=== PATIENT | male | born 1970 | race Caucasian/White ===

== ENCOUNTER → 2022-05-25 | Outpatient (CLI) | payer BC ==
[~2022-05-25] MED LIST: ISOVUE-370 76% 100ML VIAL As Ordered ONE
== END ==
LOC: M RAD 12:28
PROVIDERS: ATTEND Family Medicine
DX: R07.89 Other chest pain (principal); R07.1 Chest pain on breathing
CPT/HCPCS: 71275; Q9967

== ENCOUNTER → 2024-02-20 | Outpatient (CLI) | payer BC, OTHER | LOC: M CARPUL 13:54 | PROVIDERS: ATTEND Family Medicine | DX: I35.0 Nonrheumatic aortic (valve) stenosis (principal) ==

== ENCOUNTER → 2024-05-01 | Outpatient (CLI) | payer BC | LOC: M CARPUL 07:50 | PROVIDERS: ATTEND Internal Medicine | DX: R06.00 Dyspnea, unspecified (principal) ==

== ENCOUNTER 2025-02-14 04:10 | Emergency (ER) | payer BC ==
[~2025-02-14] VITALS: Ht 175.3 cm; Wt 113.6 kg
[2025-02-14 04:51] LABS: BASO # 0.1 10^3/uL (0.0-0.2); BASO % 0.5 % (0.0-1.0); EOS # 0.1 10^3/uL (0.0-0.5); EOS % 0.5 % (0.0-3.0); LYMPH # 1.3 10^3/uL (1.5-5.0); LYMPH % 11.8 % (24.0-44.0); MONO # 1.2 10^3/uL (0.0-0.8); MONO % 10.7 % (2.0-8.0); NEUTROPHILS # 8.3 10^3/uL (1.5-8.5); NEUTROPHILS % 76.0 % (36.0-66.0); PLATELET COUNT, AUTOMATED 246 10^3/uL (150-450)
[2025-02-14 05:10] LABS: CALCIUM LEVEL 9.8 MG/DL (8.5-10.1); CARBON DIOXIDE LEVEL 29 MMOL/L (20-31); CHLORIDE LEVEL 100 MMOL/L (98-107); CK-MB VALUE MASS < 1.0 NG/ML (<3.6); CREATININE FOR GFR 1.01 MG/DL (0.70-1.30); GLOMERULAR FILTRATION RATE 88.4 (>56); POTASSIUM SERUM 4.3 MMOL/L (3.5-5.1); SODIUM LEVEL 141 MMOL/L (136-145)
[2025-02-14 05:12] LABS: CPK CREATINE PHOSPHOKINASE 71 U/L (46-171)
[2025-02-14] MEDS: LIDOCAINE VISCOUS 2% SOLN 15 ML UDC PO ONE (06:31)
[2025-02-14] MEDS: MAALOX 30 ML SUSP *UDC PO ONE (06:31)
[2025-02-14] MEDS: PANTOPRAZOLE 40MG VIAL IV ONE (06:31)
[2025-02-14] MEDS: KETOROLAC 30 MG/ML 1 ML VIAL IV ONE (06:31)
[2025-02-14] MEDS: FAMOTIDINE 20 MG/2 ML VIAL IVP ONE (06:31)
[2025-02-14 07:02] LABS: CK-MB VALUE MASS < 1.0 NG/ML (<3.6)
[2025-02-14 07:03] LABS: CPK CREATINE PHOSPHOKINASE 67 U/L (46-171)
[2025-02-14 07:36] VITALS: BP 125/75; O2SAT 98
[2025-02-14 07:37] VITALS: TEMP 98.6
[2025-02-14] MEDS ORDERED: NAPR-1405 PO (07:49)
[2025-02-14] MEDS ORDERED: ROSU5TAB49 PO (18:48)
[2025-02-14] MEDS ORDERED: ANAS1TAB2 PO (18:48)
[2025-02-14] MEDS ORDERED: LANS15CA PO (18:48)
[2025-02-14] MEDS ORDERED: NIFE1TAB52 PO (18:48)
[2025-02-14] MEDS ORDERED: NAPR-885 PO (20:42)
[2025-02-14] MEDS ORDERED: PRED20TA PO (23:54)
[2025-02-14] MEDS ORDERED: KETO-204 PO (23:54)
== END 2025-02-14 08:20 | disposition home or self-care (01) ==
LOC: M ED 04:10
DX: R09.1 Pleurisy (principal); R94.31 Abnormal electrocardiogram [ECG] [EKG]; Z88.2 Allergy status to sulfonamides; Z88.5 Allergy status to narcotic agent; Z79.2 Long term (current) use of antibiotics; Z79.52 Long term (current) use of systemic steroids; Z79.899 Other long term (current) drug therapy

== ENCOUNTER 2025-02-14 18:36 | Emergency (ER) | payer BC ==
[~2025-02-14 18:36] MED LIST changes: -ANAS1TAB2 PO; -KETO-204 PO; -LANS15CA PO; -NAPR-885 PO; -NIFE1TAB52 PO; -PRED20TA PO; -ROSU5TAB49 PO
[2025-02-14 18:48] VITALS: TEMP 99.6
[2025-02-14] MEDS ORDERED: LANS15CA PO (18:48)
[2025-02-14] MEDS ORDERED: ANAS1TAB2 PO (18:48)
[2025-02-14] MEDS ORDERED: ROSU5TAB49 PO (18:48)
[2025-02-14] MEDS ORDERED: NIFE1TAB52 PO (18:48)
[2025-02-14] MEDS ORDERED: ISOVUE-370 76% 100 ML VIAL As Ordered ONE (19:49)
[2025-02-14] MEDS: IPRATROPIUM 0.5 MG/ALBUTEROL 2.5 MG INH SOL UD 3 ML NEB ONE (20:00)
[2025-02-14] MEDS: SUCRALFATE SUSP 1GM/10ML UD PO ONE (20:00)
[2025-02-14 20:07] LABS: BASO # 0.1 10^3/uL (0.0-0.2); BASO % 0.5 % (0.0-1.0); EOS # 0.1 10^3/uL (0.0-0.5); EOS % 0.7 % (0.0-3.0); LYMPH # 1.3 10^3/uL (1.5-5.0); LYMPH % 14.2 % (24.0-44.0); MONO # 1.2 10^3/uL (0.0-0.8); MONO % 12.4 % (2.0-8.0); NEUTROPHILS # 6.7 10^3/uL (1.5-8.5); NEUTROPHILS % 71.7 % (36.0-66.0); PLATELET COUNT, AUTOMATED 217 10^3/uL (150-450)
[2025-02-14 20:23] LABS: INR 1.05
[2025-02-14] MEDS: ALBUTEROL SULFATE 2.5 MG/0.5 ML INH CONCENTRATE NEB SOLN INH ONE (20:25)
[2025-02-14 20:37] LABS: CK-MB VALUE MASS < 1.0 NG/ML (<3.6)
[2025-02-14 20:39] LABS: ALT/SGPT 24 U/L (7.0-40); AST/SGOT 18 U/L (<34); CALCIUM LEVEL 9.3 MG/DL (8.5-10.1); CARBON DIOXIDE LEVEL 29 MMOL/L (20-31); CHLORIDE LEVEL 105 MMOL/L (98-107); CPK CREATINE PHOSPHOKINASE 67 U/L (46-171); CREATININE FOR GFR 1.03 MG/DL (0.70-1.30); GLOMERULAR FILTRATION RATE 86.3 (>56); POTASSIUM SERUM 4.1 MMOL/L (3.5-5.1); SODIUM LEVEL 144 MMOL/L (136-145)
[2025-02-14] MEDS ORDERED: NAPR-885 PO (20:42)
[2025-02-14] MEDS ORDERED: HOME MED LIST COMPLETE! XX SCH (20:45)
[2025-02-14] MEDS: KETOROLAC 30 MG/ML 1 ML VIAL IV ONE (21:43)
[2025-02-14 21:51] VITALS: BP 118/80
[2025-02-14 22:31] LABS: CK-MB VALUE MASS < 1.0 NG/ML (<3.6)
[2025-02-14 22:34] LABS: CPK CREATINE PHOSPHOKINASE 61 U/L (46-171)
[2025-02-14 23:00] VITALS: O2SAT 95
[2025-02-14 23:54] LABS: KETONE, URINE AUTO RFX NEGATIVE (NEGATIVE); LEUKOCYTE ESTERASE UR AUTO RFX NEGATIVE (NEGATIVE); NITRITE, URINE AUTO RFX NEGATIVE (NEGATIVE); RBC, URINE AUTO RFX 1 /HPF (0-3); SQUAM EPITHELIAL CELL UR AURFX 0 /HPF (0-6); WBC, URINE AUTO RFX 1 /HPF (0-3)
[2025-02-14] MEDS ORDERED: KETO-204 PO (23:54)
[2025-02-14] MEDS ORDERED: PRED20TA PO (23:54)
[2025-02-15] MEDS: KETOROLAC TROMETHAMINE 10 MG TAB PO ONE (00:59)
== END 2025-02-15 01:00 | disposition home or self-care (01) ==
LOC: M ED 18:36
DX: R09.1 Pleurisy (principal); B34.1 Enterovirus infection, unspecified; Z88.2 Allergy status to sulfonamides; Z88.5 Allergy status to narcotic agent; Z79.52 Long term (current) use of systemic steroids; Z79.899 Other long term (current) drug therapy; R07.1 Chest pain on breathing; R06.02 Shortness of breath
CPT/HCPCS: 36415; 71045; 71275; 74177; 80048; 80076; 81001; 82550; 82553; 83690; 83880; 84443; 84484; 85025; 85379; 85610; 85730; 87486; 87581; 87633; 87798; 93005; 93041; 94760; 96374; 99284; 99285; J1308; J1885; J2470; Q9967

== ENCOUNTER → 2025-02-14 | Outpatient (CLI) | payer BC ==
[~2025-02-14] MED LIST changes: +ANAS1TAB2 PO; -ISOVUE-370 76% 100ML VIAL As Ordered ONE; +KETO-204 PO; +LANS15CA PO; +NAPR-1405 PO; +NAPR-885 PO; +NIFE1TAB52 PO; +PRED20TA PO; +ROSU5TAB49 PO
== END ==
LOC: M LAB 09:29
PROVIDERS: ATTEND Family Medicine
DX: R07.1 Chest pain on breathing (principal); R06.02 Shortness of breath

== ENCOUNTER → 2025-04-03 | Outpatient (CLI) | payer BC ==
[~2025-04-03] MED LIST changes: +ANAS1TAB2 PO; +KETO-204 PO; +LANS15CA PO; +NAPR-885 PO; +NIFE1TAB52 PO; +PRED20TA PO; +ROSU5TAB49 PO
== END ==
LOC: M CARPUL 08:03
PROVIDERS: ATTEND Family Medicine
DX: I08.3 Combined rheumatic disorders of mitral, aortic and tricuspid valves (principal); M34.1 CR(E)ST syndrome

== ENCOUNTER 2025-07-05 10:44 | Emergency (ER) | payer BC ==
[~2025-07-05] VITALS: Ht 175.3 cm; Wt 111.2 kg
[2025-07-05] MEDS ORDERED: PRED5TA (10:54)
[2025-07-05] MEDS ORDERED: COLC0.6T53 (10:54)
[2025-07-05] MEDS: ACETAMINOPHEN 500 MG TAB PO ONE (11:39)
[2025-07-05 11:42] LABS: BASO # 0.0 10^3/uL (0.0-0.2); BASO % 0.5 % (0.0-1.0); EOS # 0.0 10^3/uL (0.0-0.5); EOS % 0.7 % (0.0-3.0); LYMPH # 0.3 10^3/uL (1.5-5.0); LYMPH % 5.0 % (24.0-44.0); MONO # 0.2 10^3/uL (0.0-0.8); MONO % 4.0 % (2.0-8.0); NEUTROPHILS # 5.4 10^3/uL (1.5-8.5); NEUTROPHILS % 89.5 % (36.0-66.0); PLATELET COUNT, AUTOMATED 185 10^3/uL (150-450)
[2025-07-05 12:06] LABS: ALT/SGPT 42 U/L (7.0-40); AST/SGOT 30 U/L (<34); CALCIUM LEVEL 9.2 MG/DL (8.5-10.1); CARBON DIOXIDE LEVEL 25 MMOL/L (20-31); CHLORIDE LEVEL 103 MMOL/L (98-107); CREATININE FOR GFR 0.87 MG/DL (0.70-1.30); GLOMERULAR FILTRATION RATE > 90.0 (>56); POTASSIUM SERUM 3.8 MMOL/L (3.5-5.1); SODIUM LEVEL 140 MMOL/L (136-145)
[2025-07-05 12:42] VITALS: TEMP 99.7
[2025-07-05 13:00] VITALS: BP 99/57
[2025-07-05 13:20] LABS: KETONE, URINE AUTO RFX TRACE mg/dL (NEGATIVE); LEUKOCYTE ESTERASE UR AUTO RFX NEGATIVE (NEGATIVE); NITRITE, URINE AUTO RFX NEGATIVE (NEGATIVE); RBC, URINE AUTO RFX 0 /HPF (0-3); SQUAM EPITHELIAL CELL UR AURFX 0 /HPF (0-6); WBC, URINE AUTO RFX 0 /HPF (0-3)
[2025-07-05 13:30] VITALS: O2SAT 97
== END 2025-07-05 13:49 | disposition home or self-care (01) ==
LOC: M ED 10:44
DX: R50.9 Fever, unspecified (principal); E78.5 Hyperlipidemia, unspecified; K21.9 Gastro-esophageal reflux disease without esophagitis; M34.1 CR(E)ST syndrome; Z88.2 Allergy status to sulfonamides; Z88.5 Allergy status to narcotic agent; Z79.52 Long term (current) use of systemic steroids; Z79.899 Other long term (current) drug therapy